=== PATIENT | female | born 1990 | race Caucasian/White ===

== ENCOUNTER 2017-05-06 15:56 | Inpatient (IN) | payer OTHER ==
[~2017-05-06] VITALS: Ht 172.7 cm; Wt 94.1 kg
[2017-05-06 16:38] VITALS: BP 112/69
[2017-05-06] MEDS ORDERED: NEWBORN KIT ONE ×2 (18:56→18:59)
[2017-05-06] MEDS ORDERED: OXYTOCIN 30U/ 0.9% NaCL 500ML 500 ML ONE ×2 (18:56→18:59)
[2017-05-06] MEDS ORDERED: LACTATED RINGERS 1,000 ML IV SCH (18:58)
[2017-05-06] MEDS ORDERED: OXYTOCIN 30U/ 0.9% NaCL 500ML 500 ML IV PRN (18:58)
[2017-05-06] MEDS ORDERED: D5%-LACTATED RINGERS 1,000 ML IV SCH (18:58)
[2017-05-06] MEDS ORDERED: OXYTOCIN 30U/ 0.9% NaCL 500ML 500 ML IV ONE (18:58)
[2017-05-06] MEDS ORDERED: LIDOCAINE 1%, 20ML ONE (19:00)
[2017-05-06] MEDS ORDERED: FENTANYL PF 100 MCG/2ML IV PRN (19:00)
[2017-05-06] MEDS ORDERED: CALCIUM CARBONATE 500 MG TAB.CHEW PO PRN ×2 (19:00→21:00)
[2017-05-06] MEDS ORDERED: ONDANSETRON 2MG/ML, 2ML IVPush PRN (19:00)
[2017-05-06] MEDS ORDERED: TERBUTALINE 1 MG/ML, 1ML IVPush PRN (19:00)
[2017-05-06] MEDS ORDERED: FENTANYL PF 100 MCG/2ML IVPush PRN (19:00)
[2017-05-06] MEDS ORDERED: MISOPROSTOL 200 MCG TABLET ONE (19:00)
[2017-05-06] MEDS: OXYTOCIN 30U/ 0.9% NaCL 500ML 500 ML IV SCH (20:47)
[2017-05-06 20:48] VITALS: BP 109/60
[2017-05-06] MEDS ORDERED: MISOPROSTOL 200 MCG TABLET PR PRN (21:00)
[2017-05-06] MEDS ORDERED: DIPH,PERTUSS(ACELL),TET VAC/PF NC IM-VACC PRN (21:00)
[2017-05-06] MEDS ORDERED: ACETAMINOPHEN 325 MG TABLET PO PRN ×2 (21:00)
[2017-05-06] MEDS ORDERED: GLYCERIN ADULT SUPP PR PRN (21:00)
[2017-05-06] MEDS ORDERED: CARBOPROST TROMETHAMINE 250 MCG/ML, 1ML IM PRN (21:00)
[2017-05-06] MEDS ORDERED: HYDROcodone/APAP 5/325 TABLET PO PRN (21:00)
[2017-05-06] MEDS ORDERED: MEASLES,MUMPS&RUBELLA VACC/PF 0.5 ML SQ PRN (21:00)
[2017-05-06] MEDS ORDERED: MAGNESIUM HYDROXIDE 8%, 30ML UDC PO PRN (21:00)
[2017-05-06] MEDS ORDERED: ONDANSETRON 2MG/ML, 2ML IV PRN (21:00)
[2017-05-06] MEDS ORDERED: HYDROcodone/APAP 10/325 MG TABLET PO PRN (21:00)
[2017-05-06] MEDS ORDERED: METOCLOPRAMIDE 5 MG/ML, 2ML IV PRN (21:00)
[2017-05-06] MEDS ORDERED: METHYLERGONOVINE 0.2 MG/ML IM PRN (21:00)
[2017-05-06] MEDS ORDERED: RHOGAM FROM BLOOD BANK 1 NOTE EA IM/IV ONE (21:00)
[2017-05-06] MEDS ORDERED: BISACODYL 10 MG SUPP PR PRN (21:00)
[2017-05-06] MEDS ORDERED: IBUPROFEN 600 MG TABLET ONE (21:40)
[2017-05-06] MEDS: IBUPROFEN 600 MG TABLET PO PRN (21:42)
[2017-05-06] MEDS ORDERED: METHYLERGONOVINE 0.2 MG/ML IM ONE (22:01)
[2017-05-06 23:42] LABS: PROTIME 10.3 Seconds (9.6-11.5)
[2017-05-07 00:45] VITALS: BP 103/70
[2017-05-07 04:45] VITALS: BP 115/73
[2017-05-07] MEDS: OXYTOCIN 30U/ 0.9% NaCL 500ML 500 ML IV SCH ×2 (06:47→16:47)
[2017-05-07 08:00] VITALS: BP 112/72
[2017-05-07] MEDS: DOCUSATE 100 MG CAPSULE PO PRN ×2 (08:21→20:45)
[2017-05-07] MEDS: PRENATAL VIT/IRON/FA 1 EACH TABLET PO SCH (08:21)
[2017-05-07] MEDS: IBUPROFEN 600 MG TABLET PO PRN ×2 (08:21→20:45)
[2017-05-07] MEDS ORDERED: IBUP-1222 PO (10:03)
[2017-05-07] MEDS ORDERED: FERR325T10 PO (10:04)
[2017-05-07] MEDS ORDERED: DOCU-30 PO (10:05)
[2017-05-07 12:00] VITALS: BP 113/75
[2017-05-07 16:11] VITALS: BP 113/71
[2017-05-07 21:00] VITALS: BP 110/68
[2017-05-08] MEDS: OXYTOCIN 30U/ 0.9% NaCL 500ML 500 ML IV SCH (02:47)
[2017-05-08 08:23] VITALS: BP 112/72
[2017-05-08] MEDS: DOCUSATE 100 MG CAPSULE PO PRN (08:45)
[2017-05-08] MEDS: PRENATAL VIT/IRON/FA 1 EACH TABLET PO SCH (08:45)
== END 2017-05-08 12:52 | disposition home or self-care (01) | DRG 774 ==
LOC: LDOP 15:56 → LDIP 18:58 → 2NW 05-07 00:12
PROVIDERS: ADMIT Student in an Organized Health Care Education/Training Program; ATTEND Student in an Organized Health Care Education/Training Program
PROC: 10E0XZZ Delivery of Products of Conception, External Approach (ICD-10-PCS; principal; 2017-05-06)
PROC: 0UQMXZZ Repair Vulva, External Approach (ICD-10-PCS; 2017-05-06)
PROC: 10907ZC Drainage of Amniotic Fluid, Therapeutic from Products of Conception, Via Natural or Artificial Opening (ICD-10-PCS; 2017-05-06)
PROC: 0HQ9XZZ Repair Perineum Skin, External Approach (ICD-10-PCS; 2017-05-06)
DX: O99.344 Other mental disorders complicating childbirth (principal); O72.1 Other immediate postpartum hemorrhage; F32.9 Major depressive disorder, single episode, unspecified; Z37.0 Single live birth; O69.81X0 Labor and delivery complicated by cord around neck, without compression, not applicable or unspecified; O26.893 Other specified pregnancy related conditions, third trimester; Z67.21 Type B blood, Rh negative; Z91.018 Allergy to other foods; Z3A.40 40 weeks gestation of pregnancy; O70.0 First degree perineal laceration during delivery; O71.82 Other specified trauma to perineum and vulva; Z23 Encounter for immunization
CPT/HCPCS: 36415; 85025; 85049; 85379; 85384; 85610; 85730; 86850; 86900; 88305; J2210; J2590; J7120